=== PATIENT | female | born 1975 | race Caucasian/White ===

== ENCOUNTER → 2020-09-27 13:41 | Outpatient (BNVA) | payer OTHER, MEDICAID, SELFPAY | PROVIDERS: Family Provider Internal Medicine; PCP Family Medicine; Visit Provider Internal Medicine | DX: M25.50 Pain in unspecified joint (principal); Z11.59 Encounter for screening for other viral diseases; R53.83 Other fatigue | CPT/HCPCS: 99204 ==

== ENCOUNTER 2020-09-27 14:59 | Outpatient (CLI) | payer MEDICARE, MEDICAID, SELFPAY ==
--- NOTE | 2020-09-27 15:35 | XR_ITS ---
WS: [id number] Sacroiliac joints, 3 views, 09/27/2020 Clinical Data: L40.9 - Psoriasis, unspecified Comparison: None. Findings: The SI joints are normal in width. No erosion, sclerosis or destruction is seen. There are no fractur es or dislocations. The adjacent visualized pelvis and hips are unremarkable. The soft tissues are normal. XR/XR sacroiliac jts m 3V [id number] Impression: Negative SI joints.
--- NOTE | 2020-09-27 15:35 | XR_ITS ---
WS: [id number] Right knee, AP and lateral views, 09/27/2020 Clinical Data: M25.50 - Pain in unspecified joint Comparison: None. Findings: No fractures or dislocations are seen. There is medial joint compartment narrowing.. The posterior pa tella shows mild irregularity. There is a spur of the lateral femoral condyle.. The soft tissues are unremarkable. XR/XR knee RT 1-2V [id number] Impression: Moderate osteoarthritis of the right knee. Kellgren-Thomas Classification: grade 3 (moderate): moderate multiple osteoph ytes, definite narrowing of joint space and some sclerosis and possible deformi ty of bone ends
--- NOTE | 2020-09-27 15:35 | XR_ITS ---
WS: [id number] Right hand, AP and lateral views, 09/27/2020 Clinical Data: M25.50 - Pain in unspecified joint Comparison: None. Findings: No fractures or dislocations are seen. The soft tissues are unremarkable. The joint space s are normal No abnormal periarticular calcification or demineralization is seen. XR/XR hand RT 2V [id number] Impression: Negative right hand.
--- NOTE | 2020-09-27 15:35 | XR_ITS ---
WS: [id number] Left hand, 2 views, 09/27/2020 Clinical Data: M25.50 - Pain in unspecified joint Comparison: None. Findings: No fractures or dislocations are seen. The soft tissues are unremarkable. The joint spaces are normal No periarticular demineralization or calcifications are seen. XR/XR hand LT 2V [id number] Impression: Negative left hand.
--- NOTE | 2020-09-27 15:35 | XR_ITS ---
WS: [id number] Left knee, AP and lateral views, 09/27/2020 Clinical Data: M25.50 - Pain in unspecified joint Comparison: None. Findings: No fractures or dislocations are seen. There is narrowing of the medial and lateral joint compartment s. There is a spur of the medial femoral condyle. There are small spurs of the posterior left patella . The soft tissues are unremarkable. XR/XR knee LT 1-2V [id number] Impression: Minimal osteoarthritis of the left knee Kellgren-Thomas Classification: grade 2 (minimal): definite osteophytes and p ossible joint space narrowing
[2020-09-27 16:52] LABS: Basophils # 0.1 10^3/uL (0.0-0.1); Basophils % 0.4 %; Eosinophils % 0.1 %; Hematocrit 40.4 % (37.0-47.0); Hemoglobin 12.8 g/dL (11.5-15.3); Lymphocytes % 20.1 %; Mean Corpuscular HGB Conc 31.7 g/dL (30.0-36.0); Mean Corpuscular Hemoglobin 25.7 pg (28.0-34.0); Mean Corpuscular Volume 81.1 fL (81-99); Mean Platelet Volume 11.6 fL (7.4-10.4); Monocytes # 0.5 10^3/uL (0.2-0.9); Monocytes % 3.3 %; Neutrophils # 11.21 10^3/uL (1.8-7.7); Neutrophils % 75.5 %; Nucleated Red Blood Cells % 0 %; Platelet Count 321 10^3/cmm (130-400); Red Blood Count 4.98 10^6/uL (4.1-5.3); Red Cell Distribution Width 15.2 % (12.1-15.1); White Blood Count 14.9 10^3/uL (4.0-10.0)
[2020-09-27 17:34] LABS: Alanine Aminotransferase 15 U/L (0-33); Albumin Level 3.9 g/dL (3.5-5.2); Alkaline Phosphatase 85 IU/L (35-105); Anion Gap 14.1 (5-19); Aspartate Amino Transferase 13 U/L (0-32); Blood Urea Nitrogen 12 mg/dL (6-20); C Reactive Protein 20.9 mg/L (0.0-4.9); Calcium 8.9 mg/dL (8.5-10.5); Carbon Dioxide 24 mmol/L (22-29); Chloride 104 mmol/L (98-107); Creatine Phosphokinase 80 U/L (26-192); Ferritin 120 ng/mL (15-150); Globulin 3.3 g/dL (1.3-4.6); Glomerular Filtration Rate 89.7 mL/min (90-130); Glucose 93 mg/dL (65-115); Iron 32 ug/dL (37-145); Magnesium 1.8 mg/dL (1.7-2.3); Osmolality Calculated 285 mOsm/kg (285-295); Phosphorus 3.4 mg/dL (2.5-4.5); Potassium 4.1 mmol/L (3.5-5.1); Sodium 138 mmol/L (136-145); Thyroid Stimulating Hormone 1.01 uIU/mL (0.27-4.20); Total Bilirubin 0.2 mg/dL (0.15-1.2); Total Protein 7.2 g/dL (6.6-8.7)
[2020-09-27 19:01] LABS: Erythrocyte Sedimentation Rate 40 mm/hr (0-15)
[2020-09-27 20:35] LABS: Free T4 Free Thyroxine 1.04 ng/dL (0.82-1.77)
[2020-09-27 20:44] LABS: Hepatitis B Core AB, Total Non-Reactive (Nonreactive); Hepatitis B Surface Antigen Non-Reactive (Nonreactive); Hepatitis C Virus Antibody Non-Reactive (Nonreactive)
[2020-09-29 13:18] LABS: CENTROMERE B ANTIBODY <1.0 NEG AI (<1.0 NEG); JO-1 ANTIBODY <1.0 NEG AI (<1.0 NEG); RNP ANTIBODY <1.0 NEG AI (<1.0 NEG); SCL-70 ANTIBODY <1.0 NEG AI (<1.0 NEG); SJOGREN'S ANTIBODY (SS-A) <1.0 NEG AI (<1.0 NEG); SM ANTIBODY <1.0 NEG AI (<1.0 NEG); SS-B <1.0 NEG AI (<1.0 NEG)
[2020-09-29 14:38] LABS: THYROID PEROXIDASE ANTIBODIES 1 IU/mL (<9)
[2020-09-29 14:41] LABS: Lymes IGG WB <0.90 index
[2020-09-29 15:11] LABS: ANA SCREEN, IFA NEGATIVE (NEGATIVE)
[2020-09-29 15:47] LABS: Cyclic Citrullinated Peptide <16 UNITS
[2020-09-30 11:07] LABS: COMPLEMENT, TOTAL (CH50) >60 U/mL (31-60)
[2020-09-30 11:33] LABS: COMPLEMENT COMPONENT C3C 179 mg/dL (83-193); COMPLEMENT COMPONENT C4C 33 mg/dL (15-57)
[2020-10-04 01:47] LABS: DNA AB (DS) CRITHIDIA,IFA NEGATIVE (NEGATIVE)
[2020-10-04 02:29] LABS: Tissue Transglutaminase IgA Ab <1 U/mL; Tissue transglutaminase Ab.IgG 2 U/mL
[2020-10-04 23:37] LABS: Immunoglobulin A 193 mg/dL (47-310)
[2020-10-05 16:48] LABS: Gliadin Ab.IgA 3 U (<20); Gliadin Ab.IgG 1 U (<20)
== END 2020-09-27 15:00 | disposition home or self-care (01) ==
PROVIDERS: PCP Family Medicine; Visit Provider Internal Medicine
DX: M25.50 Pain in unspecified joint (principal); L40.9 Psoriasis, unspecified; D86.9 Sarcoidosis, unspecified; Z51.81 Encounter for therapeutic drug level monitoring; Z11.59 Encounter for screening for other viral diseases
CPT/HCPCS: 72202; 73120; 73560; 80053; 82550; 82728; 82784; 83516; 83540; 83735; 84100; 84439; 84443; 85025; 85651; 86038; 86140; 86160; 86162; 86235; 86255; 86376; 86431; 86617; 86704; 86803; 87340